=== PATIENT | male | born 1945 | race Caucasian/White ===

== ENCOUNTER → 2022-02-17 | Outpatient (CLI) | payer MEDICARE, BC | LOC: RAD 07:24 → OR 07:30 → RAD 08:00 | DX: R26.2 Difficulty in walking, not elsewhere classified (principal); M47.812 Spondylosis without myelopathy or radiculopathy, cervical region; M51.36 Other intervertebral disc degeneration, lumbar region; M47.816 Spondylosis without myelopathy or radiculopathy, lumbar region; M47.817 Spondylosis without myelopathy or radiculopathy, lumbosacral region | CPT/HCPCS: 72129; 72132 ==